=== PATIENT | male | born 1990 | race Caucasian/White ===

== ENCOUNTER 2017-07-25 23:32 | Emergency (ER) | payer OTHER ==
[~2017-07-25] VITALS: Ht 177.8 cm; Wt 79.8 kg
[2017-07-25 23:36] VITALS: BP_SYST 150
[2017-07-25 23:53] VITALS: BP_SYST 150
== END 2017-07-25 23:53 ==
LOC: SED 23:32
DX: Z02.89 Encounter for other administrative examinations (principal); M54.2 Cervicalgia; V89.2XXA Person injured in unspecified motor-vehicle accident, traffic, initial encounter; Y93.89 Activity, other specified; Y92.488 Other paved roadways as the place of occurrence of the external cause; Y99.8 Other external cause status
CPT/HCPCS: 99283